=== PATIENT | male | born 1935 | race Caucasian/White ===

== ENCOUNTER 2016-10-20 18:19 | Emergency (ER) | payer OTHER ==
[~2016-10-20] VITALS: Ht 182.9 cm; Wt 100.7 kg
--- NOTE | 2016-10-20 20:21 | ED UPPER/LOWER EXTREMITY COMPL ---
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 PT STATES AT 1700 HE GOT A SHARP PAIN IN HIS RIGHT CALF AND HE STATES HE THINKS HE MAY HAVE A BLOOD CLOT. PT HAS SWELLING IN HIS RIGHT LOWER EXT. Triage Nurses Notes Reviewed? yes Onset: Abrupt Duration: hour(s): (few) Timing: single episode today Severity: mild, moderate Pain/Injury Location: Right: Leg. No Modifying Factors: none HPI: This is a very liana 78-year-old male with history of TIA on Aggrenox presents to the ER with chief complaint of right lower extremity shooting pains since 5 PM. Denies any chest pain or shortness of breath. No fever or chills. Denies any trauma to the area. He states the leg is chronically more swollen left. 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 Past History Travel History Traveled to [place] past 21 day No Medical History Any Pertinent Medical History? see below for history Cardiovascular: hypertension, hyperlipidemia Gastrointestinal: BPH Tetanus Vaccine: 05/27/13 Surgical History Surgical History: non-contributory Psychosocial History What is your primary language Occitan Tobacco Use: Never used ETOH Use: denies use Illicit Drug Use: denies illicit drug use Family History Hx Contributory? No Review of Systems Review of Systems Constitutional: Denies: chills, fever. EENTM: Reports: no symptoms. Respiratory: Denies: cough, short of breath. Cardiovascular: Reports: peripheral edema. Denies: chest pain. Gastrointestinal/Abdominal: Reports: no symptoms. Genitourinary: Reports: no symptoms. Musculoskeletal: Reports: see HPI (leg pain/swelling). Skin: Reports: no symptoms. Neurological/Psychological: Reports: no symptoms. Hematologic/Endocrine: Denies: bruising, bleeding, polyuria, polydipsia. Immunological: Reports: no symptoms. All Other Systems: Reviewed and Negative Physical Exam Physical Exam General Appearance: alert, awake, mild distress Head: atraumatic, normal appearance Eyes: Bilateral: PERRL, EOMI. Ears, Nose, Throat: normal pharynx, hearing grossly normal Neck: normal inspection, supple, full range of motion Cardiovascular/Respiratory: normal breath sounds, normal peripheral pulses Peripheral Pulses: 2+ radial (R), 2+ radial (L), 2+ dorsalis pedis (R), 2+ dorsalis pedis (L) Leg Right: VARICOSE VEINS, MILD EDEMA NEGATIVE TORO, NEGATIVE [place] Hip Left: normal range of motion, normal inspection Hip Right: normal range of motion, normal inspection Knee Left: normal range of motion, normal inspection Knee Right: normal range of motion, normal inspection Foot Left: normal inspection, normal range of motion Foot Right: normal inspection, normal range of motion Progress Differential Diagnosis: DVT, superficial thrombophlebitis, varicose veins Plan of Care: Orders Procedure Date/time Status US-DUPLEX VENOUS EXTREM UNI 10/21 1823 Active 10/20/2016 8:33:37 PM Ultrasound is performed. Results pending at this time. Discussed with family. (HUNG KING,TANNER) Diagnostic Imaging: Viewed by Me: Ultrasound. Discussed w/RAD: Ultrasound. Radiology Impression: PATIENT: DERRELL OTT PRESENT AGE: 81 PATIENT ACCOUNT NO: [id number] : 33 LOCATION: [facility] ORDERING PHYSICIAN: PAULINA SIMS SERVICE DATE: 10/20/16 EXAM TYPE: US - US-DUPLEX VENOUS EXTREM UNI EXAMINATION: RIGHT LOWER EXTREMITY DEEP VENOUS ULTRASOUND CLINICAL INFORMATION: Right lower extremity pain and swelling. COMPARISON: Right lower extremity DVT study 02/16/2007 TECHNIQUE: Duplex Doppler imaging with compression maneuvers were performed of the right lower extremity deep venous system. FINDINGS: The visualized common femoral, femoral and popliteal veins demonstrate normal compressibility and color flow without evidence of venous thrombosis. Visualized portions of the calf veins demonstrate normal color fill-in suggesting patency. A few superficial vascular structures are easily compressible and demonstrate normal color Doppler flow, most suggestive of patent varices. There is no evidence of a Flower's cyst. IMPRESSION : No evidence of deep venous thrombosis involving the right lower extremity. DICTATED BY: JANEE SANCHEZ MD DATE/TIME DICTATED:10/20/162058 MOUTHPIECE MAKER:FILIBERTO DATE/TIME TRANSCRIBED:10/20/162058 CONFIDENTIAL, DO NOT COPY WITHOUT APPROPRIATE AUTHORIZATION. <Electronically signed in Other Vendor System> SIGNED BY: JANEE SANCHEZ MD 10/20/162104 Departure Departure Disposition: HOME OR SELF CARE Condition: Stable Clinical Impression Primary Impression: Leg pain Secondary Impressions: Varicose veins of leg with edema Referrals: ROSA KING,MARKUS METZ MD,Patricia SOSA (PCP/Family) Additional Instructions: YOUR ULTRASOUND WAS NEGATIVE FOR A DEEP VEIN THROMBOSIS WARM SOAKS TO THE AREA MONITOR FOR REDNESS, FEVER FOLLOW UP WITH YOUR DOCTOR AND/OR THE VASCULAR SURGEON LISTED Departure Forms: Customer Survey General Discharge Information
[2016-10-20 20:51] VITALS: BP 161/88
--- NOTE | 2016-10-20 21:05 | ULTRASOUND REPORT ---
EXAMINATION: RIGHT LOWER EXTREMITY DEEP VENOUS ULTRASOUND CLINICAL INFORMATION: Right lower extremity pain and swelling. COMPARISON: Right lower extremity DVT study 02/16/2007 TECHNIQUE: Duplex Doppler imaging with compression maneuvers were performed of the right lower extremity deep venous system. FINDINGS: The visualized common femoral, femoral and popliteal veins demonstrate normal compressibility and color flow without evidence of venous thrombosis. Visualized portions of the calf veins demonstrate normal color fill-in suggesting patency. A few superficial vascular structures are easily compressible and demonstrate normal color Doppler flow, most suggestive of patent varices. There is no evidence of a Flower's cyst. IMPRESSION: No evidence of deep venous thrombosis involving the right lower extremity.
== END 2016-10-20 21:15 ==
LOC: ERH 18:19
DX: I83.891 Varicose veins of right lower extremity with other complications (principal)